=== PATIENT | female | born 1950 | race Caucasian/White ===

== ENCOUNTER 2017-11-09 04:22 | Emergency (ER) | payer OTHER ==
[~2017-11-09] VITALS: Ht 162.6 cm; Wt 89.8 kg
[~2017-11-09 04:22] MED LIST: FISH1000 PO; Hydrochloroth12.5 MG PO; LISHYD2012 PO; METO50 PO; Omeprazole20 M1 PO
== END 2017-11-09 05:51 | disposition home or self-care (01) ==
LOC: ER 04:22
DX: F41.9 Anxiety disorder, unspecified (principal); F43.9 Reaction to severe stress, unspecified; I10 Essential (primary) hypertension; Z79.899 Other long term (current) drug therapy; Z87.891 Personal history of nicotine dependence
CPT/HCPCS: 93005; 93010; 99283

== ENCOUNTER 2018-05-01 17:06 | Emergency (ER) | payer OTHER ==
[~2018-05-01] VITALS: Ht 162.6 cm; Wt 88.5 kg
== END 2018-05-01 17:55 | disposition home or self-care (01) ==
LOC: ER 17:06
DX: S61.012A Laceration without foreign body of left thumb without damage to nail, initial encounter (principal); I10 Essential (primary) hypertension; Z79.899 Other long term (current) drug therapy; Z87.891 Personal history of nicotine dependence; W26.8XXA Contact with other sharp object(s), not elsewhere classified, initial encounter
CPT/HCPCS: 12002; 99282

== ENCOUNTER 2018-05-10 14:48 | Emergency (ER) | payer OTHER ==
[~2018-05-10] VITALS: Ht 162.6 cm; Wt 88.5 kg
[2018-05-10] MEDS ORDERED: LOSA50 (15:05)
[2018-05-10] MEDS ORDERED: Metoprolol Tar100 MG (15:05)
== END 2018-05-10 15:40 | disposition home or self-care (01) ==
LOC: ER 14:48
DX: S61.012D Laceration without foreign body of left thumb without damage to nail, subsequent encounter (principal); I10 Essential (primary) hypertension; Z79.899 Other long term (current) drug therapy; Z87.891 Personal history of nicotine dependence

== ENCOUNTER → 2018-12-23 | Outpatient (CLI) | payer OTHER ==
[~2018-12-23] MED LIST changes: +LOSA50; +Metoprolol Tar100 MG
[2018-12-27 16:06] LABS: HPV 16 Negative (Negative); HPV 18 Negative (Negative); HPV OTHER HR TYPES Negative (Negative)
== END | disposition home or self-care (01) ==
LOC: LAB 12:00 → LAB SHORT 12:00
PROVIDERS: Radiology Radiation Oncology
DX: C54.1 Malignant neoplasm of endometrium (principal)
CPT/HCPCS: 87624; 88175

== ENCOUNTER 2019-04-06 02:55 | Emergency (ER) | payer OTHER ==
[~2019-04-06] VITALS: Ht 162.6 cm; Wt 89.8 kg
[2019-04-06] MEDS ORDERED: Oxybutynin Chlo10 MG PO (03:11)
[2019-04-06] MEDS ORDERED: AMLO10 PO (03:11)
[2019-04-06] MEDS ORDERED: CHLO25B PO (03:12)
[2019-04-06] MEDS ORDERED: Lopressor 50 mg50 MG PO (03:13)
[2019-04-06 04:11] LABS: Anion Gap 7 mmol/L (6-16); Blood Urea Nitrogen 19 mg/dL (8-24); Bun/Creatinine Ratio 34.9 (12.0-20.0); CO2, Blood 28 mmol/L (21-32); Chloride, Blood 108 mmol/L (98-108); Creatinine, Blood 0.55 mg/dL (0.40-1.00); Glomerular Filtration Rate >60 (60-); Glucose, Blood 119 mg/dL (70-99); Potassium, Blood 3.7 mmol/L (3.5-5.5); Sodium, Blood 143 mmol/L (136-145)
[2019-04-06] MEDS ORDERED: Flector1 EACH UD (04:27)
== END 2019-04-06 04:46 | disposition home or self-care (01) ==
LOC: ER 02:55
PROVIDERS: Emergency Medicine
DX: M25.552 Pain in left hip (principal); G89.29 Other chronic pain; I10 Essential (primary) hypertension; Z79.899 Other long term (current) drug therapy; Z87.891 Personal history of nicotine dependence
CPT/HCPCS: 73502; 80048; 96374; 99283-25; J1885

== ENCOUNTER 2020-08-12 08:17 | Day surgery (SDC) | payer OTHER ==
[~2020-08-12] VITALS: Ht 160 cm; Wt 89.2 kg
[~2020-08-12 08:17] MED LIST changes: +ACET500 PO; +AIRBORNE PO; +AMLO10 PO; +Aspir 8181 MG PO; +CENTRUM SILVER1 EAC2 PO; +CHLO25B PO; +Flector1 EACH UD; +Lopressor 50 mg50 MG PO; +NAPR500 PO; +OMEGA XL PO; +Oxybutynin Chlo10 MG PO; +ROXICODONE5 MG PO; +SYMBICORT 160-4.6 GM INH
--- NOTE | 2020-08-12 09:09 | NUR ---
History, Chart, Medications and Allergies reviewed before start of procedure. Lungs clear T/O to Auscultation. Patient confirms NPO status and agrees with scheduled surgery. Pre-Op teaching done. Pt verbalizes understanding.
--- NOTE | 2020-08-12 15:26 | NUR ---
THERAPY: PT IN ROOM TO WORK WITH PATIENT. PT HAS FULL SENSATION AND DENIES PAIN. PT HAS ALREADY BEEN UP TO CHAIR WITH MIN ASSIST.
--- NOTE | 2020-08-12 18:04 | NUR ---
PT HAS BEEN STABLE POST OP. PT HAS BEEN UP TO CHAIR AND AMBULATED WITH STAFF AND THERAPY. PT DENIES PAIN. PT TAYLOR DIET WELL. SL IV PER ORDERS. PT HAS VOIDED. AQUACEL CDI. PAS, TEDS AND POLAR PACK IN PLACE. PT USES CALL LIGHT APPROPRIATELY NEEDED.
[2020-08-13 05:04] LABS: BASOPHILS ABSOLUTE AUTO 0.02 K/mm3 (0.00-0.23); BASOPHILS PERCENT AUTO 0 % (0-2); EOSINOPHILS PERCENT AUTO 0 % (0-6); Hematocrit 34.8 % (33.0-51.0); Hemoglobin 11.2 g/dL (11.5-16.0); IMMATURE GRAN PERCENT AUTO 1 % (0-1); LYMPHOCYTES ABSOLUTE AUTO 1.02 K/mm3 (0.84-5.20); LYMPHOCYTES PERCENT AUTO 7 % (21-46); MONOCYTES ABSOLUTE AUTO 1.46 K/mm3 (0.16-1.47); MONOCYTES PERCENT AUTO 10 % (4-13); Mean Corpuscular HGB 27.9 pg (26.0-34.0); Mean Corpuscular HGB Conc 32.2 g/dL (31.5-36.5); Mean Corpuscular Volume 87 fL (80-100); Mean Platelet Volume 8.9 fL (9.1-12.4); NEUTROPHILS ABSOLUTE AUTO 12.79 K/mm3 (1.96-9.15); NEUTROPHILS PERCENT AUTO 83 % (41-73); Platelet Count 228 K/mm3 (150-400); RDW Coefficient Variation 12.6 % (11.7-14.2); RDW Standard Deviation 40.1 fL (35.1-46.3); Red Blood Cell Count 4.01 M/mm3 (3.80-5.20); White Blood Cell Count 15.39 K/mm3 (4.00-11.30)
[2020-08-13 05:22] LABS: Anion Gap 7 mmol/L (6-16); Blood Urea Nitrogen 22 mg/dL (8-24); Bun/Creatinine Ratio 32.5 (12.0-20.0); CO2, Blood 28 mmol/L (21-32); Calcium, Blood 8.7 mg/dL (8.5-10.1); Chloride, Blood 105 mmol/L (98-108); Creatinine, Blood 0.68 mg/dL (0.40-1.00); Glomerular Filtration Rate >60 (60-); Glucose, Blood 164 mg/dL (70-99); Sodium, Blood 140 mmol/L (136-145)
--- NOTE | 2020-08-13 05:42 | NUR ---
SHIFT SUMMNARY LYING IN SEMI FOWLERS WITH EYES CLOSED. HAS RESTED OFF AND ON THIS SHIFT. OOB AND AMBULATED TO BATHROOM X3. SCHEDULED PAIN MEDS GIVEN, DENIES NEED FOR PRN MEDS. NO SIGNIFICANT CHANGES THROUGH OUT SHIFT. DENIES PAIN, DISCOMFORT, OR FURTHER NEEDS AT THIS TIME. SAFETY MEASURES IN PLACE. WILL CONTINUE TO MONITOR.
[2020-08-13] MEDS ORDERED: OXYC5 PO (08:59)
--- NOTE | 2020-08-13 10:00 | NUR ---
DISCHARGE CLEARED THERAPY, PAIN WELL MANAGED. EATING, DRINKING, AND VOIDING WELL. SCRIPT, DRSGS, & POLAR PACK SENT. ESCORTED OUT VIA WC.
== END 2020-08-13 10:24 | disposition home or self-care (01) ==
LOC: ORD 08:17 → ORSCMMR 08:17 → ORD 11:15 → SURS 13:21 → ORD 08-13 10:24
PROVIDERS: Orthopaedic Surgery
PROC: 0SR90JA Replacement of Right Hip Joint with Synthetic Substitute, Uncemented, Open Approach (ICD-10-PCS; principal; 2020-08-12 11:15)
DX: M16.11 Unilateral primary osteoarthritis, right hip (principal); Z23 Encounter for immunization; I10 Essential (primary) hypertension; J45.909 Unspecified asthma, uncomplicated; E66.9 Obesity, unspecified; Z68.34 Body mass index [BMI] 34.0-34.9, adult; Z79.899 Other long term (current) drug therapy
CPT/HCPCS: 36415; 72170; 80048; 83735; 85025; 88300; 94760; 97110; 97116; 97161; 97530; A9270; A9270-GY; C1776; J0171; J0690; J0735; J1100; J1885; J2250; J2370; J2405; J2704; J2795; J3010; J7120; Q2038

== ENCOUNTER → 2023-04-15 | Outpatient (CLI) | payer OTHER ==
[~2023-04-15] MED LIST changes: +OXYC5 PO
[2023-04-15 12:56] LABS: BASOPHILS ABSOLUTE AUTO 0.05 K/mm3 (0.00-0.23); BASOPHILS PERCENT AUTO 1 % (0-2); EOSINOPHILS ABSOLUTE AUTO 0.15 K/mm3 (0.00-0.68); EOSINOPHILS PERCENT AUTO 2 % (0-6); IMMATURE GRAN ABSOLUTE AUTO 0.07 K/mm3 (0.00-0.10); IMMATURE GRAN PERCENT AUTO 1 % (0-1); LYMPHOCYTES PERCENT AUTO 27 % (21-46); MONOCYTES ABSOLUTE AUTO 0.69 K/mm3 (0.16-1.47); MONOCYTES PERCENT AUTO 8 % (4-13); Mean Corpuscular HGB 29.2 pg (26.0-34.0); Mean Corpuscular HGB Conc 33.3 g/dL (31.5-36.5); Mean Corpuscular Volume 88 fL (80-100); Mean Platelet Volume 9.3 fL (9.1-12.4); NEUTROPHILS ABSOLUTE AUTO 5.39 K/mm3 (1.96-9.15); NEUTROPHILS PERCENT AUTO 62 % (41-73); Platelet Count 284 K/mm3 (150-400); RDW Coefficient Variation 12.3 % (11.7-14.2); RDW Standard Deviation 39.5 fL (35.1-46.3); White Blood Cell Count 8.65 K/mm3 (4.00-11.30)
[2023-04-15 13:42] LABS: Alanine Aminotransfer (ALT/SGP 31 U/L (12-78); Albumin, Blood 3.8 g/dL (3.4-5.0); Albumin/Globulin Ratio 1.3 (0.8-1.8); Alk Phos 92 U/L (50-136); Anion Gap 6 mmol/L (6-16); Aspartate Aminotrans (AST/SGOT 20 U/L (12-37); Bilirubin, Total 0.3 mg/dL (0.1-1.0); Blood Urea Nitrogen 18 mg/dL (8-24); Bun/Creatinine Ratio 29.7 (12.0-20.0); CHOL/HDL RATIO 5.2; CO2, Blood 30 mmol/L (21-32); Calcium, Blood 9.1 mg/dL (8.5-10.1); Chloride, Blood 105 mmol/L (98-108); Cholesterol 201 mg/dL (50-200); Creatinine, Blood 0.61 mg/dL (0.40-1.00); Glomerular Filtration Rate 95 (60-); Glucose, Blood 103 mg/dL (70-99); HDL Cholesterol 39 mg/dL (>39); LDL/HDL RATIO 3.3; Low Density Lipoprotein Chol 129 mg/dL (0-110); Potassium, Blood 3.3 mmol/L (3.5-5.5); Sodium, Blood 141 mmol/L (136-145); Total Protein, Blood 6.8 g/dL (6.4-8.2); Triglycerides 167 mg/dL (30-160); Very Low Density Lipoprot Chol 33 mg/dL (6-32)
== END | disposition home or self-care (01) ==
LOC: LAB SHORT 08:22 → LAB 08:22
PROVIDERS: Student in an Organized Health Care Education/Training Program
DX: J44.9 Chronic obstructive pulmonary disease, unspecified (principal); E78.2 Mixed hyperlipidemia; R73.9 Hyperglycemia, unspecified
CPT/HCPCS: 80053; 80061; 83036; 85025

== ENCOUNTER 2024-09-06 08:36 | Day surgery (SDC) | payer OTHER ==
[~2024-09-06] VITALS: Ht 162.6 cm; Wt 85.6 kg
[2024-09-06] VITALS (18 sets, daily range): BP systolic 98–152; BP diastolic 58–94
[~2024-09-06 08:36] MED LIST changes: +Lactated Ringer's 1,000 ML IV SCH; +TRELEGY ELLIPT1 EACH IH
--- NOTE | 2024-09-06 09:19 | NUR ---
Ambulatory in Day Surgery. History, Chart, Medications and Allergies reviewed before start of procedure. Lungs clear T/O to Auscultation. Patient confirms NPO status and agrees with scheduled surgery. Pre-Op teaching done. Pt verbalizes understanding. Patient States Post-Procedure ride home has been arranged.
[2024-09-06] MEDS ORDERED: propofoL 20 ML IV ONE ×2 (09:25)
--- NOTE | 2024-09-06 09:41 | NUR ---
09/06/24 0941 Alex Merino CONFIRMED AND REVIEWED H&P, MEDCICATIONS, ALLERGIES, MEDICAL HISTORY, RESPIRATORY HISTORY, VITAL SIGNS, 3-LEAD EKG, CONSENTS, AND PHYSICIAN ORDERS. PATIENT CONFIRMS NPO STATUS AND AGREES WITH SCHEDULED PROCEDURE. MONITOR INTACT WITH CONTINUOUS PULSE OXIMETRY, CAPNOGRAPHY, 3-LEAD EKG, INTERMITTENT BP. SUPPLEMENTAL O2 TO BE TITRATED THROUGHOUT PROCEDURE TO MAINTAIN O2 SATURATION ABOVE 90%. PATIENT DETERMINED TO BE ASA APPROPRIATE FOR PROPOFOL SEDATION PRIOR TO START OF PROCEDURE BY DR. RASMUSSEN
--- NOTE | 2024-09-06 10:36 | NUR ---
DISCHARGE NOTE PT A&OX4, BREATHING RA, TOLERATING PO INTAKE, VSS. Patient up to Ambulate independently. Gait steady. PT DRESSING INDEPENDENTLY. ABDOMEN SOFT AND NON TENDER, Discharge instructions reviewed with patient. Patient verbalizes understanding. Copy given to patient to take home. Discharged via wheelchair to private car for ride home.
== END 2024-09-06 10:40 | disposition home or self-care (01) ==
LOC: ORSCMMR 08:36 → ORD 09:30 → ORSCMMR 09:30
PROVIDERS: Internal Medicine Gastroenterology
PROC: 0DBK8ZX Excision of Ascending Colon, Via Natural or Artificial Opening Endoscopic, Diagnostic (ICD-10-PCS; principal; 2024-09-06 09:30)
PROC: 0DBM8ZX Excision of Descending Colon, Via Natural or Artificial Opening Endoscopic, Diagnostic (ICD-10-PCS; principal; 2024-09-06 09:30)
PROC: 0DBP8ZX Excision of Rectum, Via Natural or Artificial Opening Endoscopic, Diagnostic (ICD-10-PCS; principal; 2024-09-06 09:30)
PROC: 0DBL8ZX Excision of Transverse Colon, Via Natural or Artificial Opening Endoscopic, Diagnostic (ICD-10-PCS; principal; 2024-09-06 09:30)
DX: K62.5 Hemorrhage of anus and rectum (principal); R19.5 Other fecal abnormalities; D12.3 Benign neoplasm of transverse colon; D12.2 Benign neoplasm of ascending colon; K62.1 Rectal polyp; K63.5 Polyp of colon; K57.30 Diverticulosis of large intestine without perforation or abscess without bleeding; I10 Essential (primary) hypertension; J44.9 Chronic obstructive pulmonary disease, unspecified; Z79.899 Other long term (current) drug therapy; Z85.42 Personal history of malignant neoplasm of other parts of uterus; Z87.891 Personal history of nicotine dependence
CPT/HCPCS: 88305; J2704; J7120

== ENCOUNTER 2025-05-19 05:52 | Observation (INO) | payer OTHER ==
[~2025-05-19] VITALS: Ht 162.6 cm; Wt 86.5 kg
[~2025-05-19 05:52] MED LIST changes: -Lactated Ringer's 1,000 ML IV SCH
[2025-05-19] MEDS ORDERED: Diltiazem HCl 5 MG / ML 5ML Vial IV SCH (06:40)
[2025-05-19 06:47] LABS: BASOPHILS ABSOLUTE AUTO 0.05 K/mm3 (0.00-0.23); BASOPHILS PERCENT AUTO 1 % (0-2); EOSINOPHILS ABSOLUTE AUTO 0.20 K/mm3 (0.00-0.68); EOSINOPHILS PERCENT AUTO 2 % (0-6); Hematocrit 43.1 % (33.0-51.0); Hemoglobin 14.2 g/dL (11.5-16.0); IMMATURE GRAN ABSOLUTE AUTO 0.06 K/mm3 (0.00-0.10); IMMATURE GRAN PERCENT AUTO 1 % (0-1); LYMPHOCYTES ABSOLUTE AUTO 2.56 K/mm3 (0.84-5.20); LYMPHOCYTES PERCENT AUTO 26 % (21-46); MONOCYTES ABSOLUTE AUTO 0.89 K/mm3 (0.16-1.47); MONOCYTES PERCENT AUTO 9 % (4-13); Mean Corpuscular HGB Conc 32.9 g/dL (31.5-36.5); Mean Corpuscular Volume 88 fL (80-100); NEUTROPHILS ABSOLUTE AUTO 6.23 K/mm3 (1.96-9.15); NEUTROPHILS PERCENT AUTO 62 % (41-73); NRBC ABSOLUTE 0.00 K/mm3 (0.00-0.02); NRBC Auto 0.0 /100 WBC (0.0-0.2); Platelet Count 254 K/mm3 (150-400); RDW Coefficient Variation 12.5 % (11.7-14.2); RDW Standard Deviation 40.1 fL (35.1-46.3)
[2025-05-19] MEDS ORDERED: Diltiazem HCl 5 MG / ML 5ML Vial IV ONE (07:15)
[2025-05-19 07:31] LABS: Magnesium, Blood 1.5 mg/dL (1.6-2.4); Thyroid Stimulating Hormone 2.44 uIU/mL (0.360-4.800)
[2025-05-19 07:32] LABS: Alanine Aminotransfer (ALT/SGP 24.0 U/L (12-78); Albumin, Blood 3.8 g/dL (3.4-5.0); Albumin/Globulin Ratio 1.2 (0.8-1.8); Anion Gap 13.0 mmol/L (3-11); Aspartate Aminotrans (AST/SGOT 19.0 U/L (12-37); Bilirubin, Total 0.4 mg/dL (0.1-1.0); Blood Urea Nitrogen 19.0 mg/dL (8-24); CO2, Blood 27.0 mmol/L (21-32); Calcium, Blood 9.2 mg/dL (8.5-10.1); Chloride, Blood 101.0 mmol/L (98-108); Creatinine, Blood 0.56 mg/dL (0.40-1.00); Globulin, Blood 3.3 g/dL (2.2-4.0); Glucose, Blood 160.0 mg/dL (70-99); Potassium, Blood 2.8 mmol/L (3.5-5.5); Sodium, Blood 138.0 mmol/L (136-145); Total Protein, Blood 7.1 g/dL (6.4-8.2)
[2025-05-19] MEDS ORDERED: Mag Sulfate 1 GM/D5% 100ML 100 ML IV ONE (07:45)
[2025-05-19] MEDS ORDERED: NS 1,000 ML IV SCH ×2 (08:05→09:15)
[2025-05-19] MEDS ORDERED: FLU VACC TS2025(65UP)/MF59C/PF 45 MCG/0.5 ML SYRINGE IM SCH (09:15)
--- NOTE | 2025-05-19 10:30 | NUR ---
PT ARRIVED TO UNIT FROM ED @ 1030. SHE AMBULATED FROM [facility] TO BED INDEPENDENTLY. SHE THEN AMBULATED TO THE RESTROOM. SHE IS A&Ox4 AND ABLE TO MAKE NEEDS KNOWN. SHE IS ON RA W/O2 SATS > 92%. IV POTASSIUM RUNNING PER EMAR. NO C/O CP, PRESSURE OR PALPITATIONS. NO NEEDS OR CONCERNS NOTED @ THIS TIME. BED IN LOW POSITION, CALL LIGHT AND PERSONAL BELONGINGS IN REACH.
[2025-05-19 10:37] VITALS: BP 135/71
[2025-05-19] MEDS ORDERED: AMLO10 PO (10:50)
[2025-05-19] MEDS ORDERED: Hygroton50 MG (10:51)
[2025-05-19] MEDS ORDERED: Oxybutynin Chlo10 MG PO (10:53)
[2025-05-19] MEDS ORDERED: ALLERCLEAR10 MG PO (10:54)
[2025-05-19] MEDS ORDERED: Formoterol/Mometasone MDI 5/100 mcg 13 GM INH SCH (11:30)
[2025-05-19] MEDS ORDERED: Ipratropium Bromide INH 0.02% 0.5 mg/2.5ML Vial INH SCH (11:30)
[2025-05-19 12:01] VITALS: BP 128/67
[2025-05-19 15:46] VITALS: BP 133/66
[2025-05-19 19:35] VITALS: BP 133/109
[2025-05-19 20:00] VITALS: BP 141/68
[2025-05-20 00:11] VITALS: BP 116/66
[2025-05-20 00:39] VITALS: BP 116/66
[2025-05-20 03:54] LABS: Hematocrit 36.1 % (33.0-51.0); Hemoglobin 11.8 g/dL (11.5-16.0); Mean Corpuscular HGB Conc 32.7 g/dL (31.5-36.5); Mean Corpuscular Volume 89 fL (80-100); NRBC ABSOLUTE 0.00 K/mm3 (0.00-0.02); NRBC Auto 0.0 /100 WBC (0.0-0.2); Platelet Count 211 K/mm3 (150-400); RDW Coefficient Variation 12.6 % (11.7-14.2); RDW Standard Deviation 41.1 fL (35.1-46.3)
[2025-05-20 04:00] VITALS: BP 126/80
[2025-05-20 04:16] LABS: Anion Gap 8.0 mmol/L (3-11); Blood Urea Nitrogen 15.0 mg/dL (8-24); CO2, Blood 29.0 mmol/L (21-32); Calcium, Blood 8.8 mg/dL (8.5-10.1); Chloride, Blood 105.0 mmol/L (98-108); Creatinine, Blood 0.62 mg/dL (0.40-1.00); Glucose, Blood 120.0 mg/dL (70-99); Magnesium, Blood 1.7 mg/dL (1.6-2.4); Phosphorus, Blood 3.3 mg/dL (2.5-4.9); Potassium, Blood 3.5 mmol/L (3.5-5.5); Sodium, Blood 138.0 mmol/L (136-145)
--- NOTE | 2025-05-20 06:42 | NUR ---
NO SIGNIFIGANT OVERNIGHT EVENTS, THOUGH PATIENT WAS UNABLE TO SLEEP. SHE REPORTS MELATONIN AND HYDROXIZINE HAVE BEEN TRIED WITH PARADOXICAL EFFECT. ATTEMPTED TRAZIDONE. PATIENT REPORTS NO PARADOXICAL EFFECTS WITH OTHER MEDICATION BUT STILL UNABLE TO SLEEP, STATES FEELS NO DIFFERENT JUST WIDE AWAKE. PLAN FOR TODAY IS ECHO, PLAN FOR ADMISSION IS ADJUSTMENT OF BP MEDS AND ADDING ANTICOAGS TO REGIMIN DT NEW ONSET AFIB.
[2025-05-20 07:20] VITALS: BP 118/81
--- NOTE | 2025-05-20 07:45 | NUR ---
CARE ASSUMPTION PT A&OX4, VSS. RA, TELEMETRY SHOWS SINUS NATHAN, HR 50'S. PT DENIES PAIN. INDEPENDENT IN ROOM. IVS PATENT. AWAITING ECHO THIS SHIFT. PT STATES SHE DID NOT SLEEP LAST NIGHT. OFFERED PT A FEW HOURS SECLUSION TO NAP, PT DENIED, STATED IT WONT HELP. SHE GETS UP FREQUENTLY TO URINATE. OFFERED PT PURWIK, PT DECLINED. PT IN ROOM WATCHING TV, CALL LIGHT IN REACH.
[2025-05-20] MEDS ORDERED: Enoxaparin 40 MG/0.4 ML SYR SC SCH (09:00)
[2025-05-20] MEDS ORDERED: METO50 PO (11:56)
[2025-05-20 12:58] VITALS: BP 131/79
--- NOTE | 2025-05-20 14:34 | NUR ---
discharge summary Pt a&ox4. vss. telemetry removed. iv removed by aid. pt dressed in personal clothes. discharge medication faxed to [facility] on [address] per pt request. Discharge paperwork and medications reviewed w/ pt and daughter. Afif education printed and given. pt wheeled to to private vehicle with all belongings including home inhalor.
--- NOTE | 2025-05-20 14:36 | NUR ---
echo done, call placed to md vigil. md vigil with clearance to discharge.
== END 2025-05-20 14:50 | disposition home or self-care (01) ==
LOC: ER 05:52 → PCU 05:53
PROVIDERS: ADMIT Internal Medicine
DX: I48.0 Paroxysmal atrial fibrillation (principal); I70.0 Atherosclerosis of aorta; I05.2 Rheumatic mitral stenosis with insufficiency; I11.9 Hypertensive heart disease without heart failure; J44.9 Chronic obstructive pulmonary disease, unspecified; E87.6 Hypokalemia; E83.42 Hypomagnesemia; E86.0 Dehydration; R06.01 Orthopnea; S89.91XA Unspecified injury of right lower leg, initial encounter; M79.604 Pain in right leg; W10.9XXA Fall (on) (from) unspecified stairs and steps, initial encounter; Z66 Do not resuscitate; Z79.899 Other long term (current) drug therapy; Z79.51 Long term (current) use of inhaled steroids; Z87.891 Personal history of nicotine dependence; Z85.42 Personal history of malignant neoplasm of other parts of uterus; Z88.8 Allergy status to other drugs, medicaments and biological substances; Z90.710 Acquired absence of both cervix and uterus; Z92.3 Personal history of irradiation; Z96.643 Presence of artificial hip joint, bilateral
CPT/HCPCS: 36415; 71046; 73562-RT; 80048; 80053; 83735; 84100; 84443; 84484; 85025; 85027; 93005; 93010; 93306; 93971; 94640; 94664; 94760; 94762; 96361; 96365; 96368; 96372; 96376; 99285-25; A9270; G0378; J1650; J3475; J3480; J7030; J7050

== ENCOUNTER → 2025-07-02 | Outpatient (CLI) | payer OTHER ==
[~2025-07-02] MED LIST changes: +ALLERCLEAR10 MG PO; +Hygroton50 MG
[2025-07-02 17:28] LABS: CHOL/HDL RATIO 5.0; Cholesterol 184 mg/dL (50-200); HDL Cholesterol 37 mg/dL (>39); LDL/HDL RATIO 3.3; Low Density Lipoprotein Chol 122 mg/dL (0-110); Triglycerides 125 mg/dL (30-160); Very Low Density Lipoprot Chol 25 mg/dL (6-32)
== END ==
LOC: LAB SHORT 12:18 → LAB 12:18
PROVIDERS: Nurse Practitioner Family
DX: E78.2 Mixed hyperlipidemia (principal)
CPT/HCPCS: 80061